=== PATIENT | female | born 1995 | race Caucasian/White ===

== ENCOUNTER 2023-10-24 09:30 | Inpatient (IN) | payer OTHER, SELFPAY ==
[2023-10-24 09:45] VITALS: BP 138/81; BMI 46.1
[2023-10-24 09:48] LABS: Hematocrit 34.5 % (37.0-47.0); Hemoglobin 12.5 g/dL (12.0-16.0); Mean Corp Hgb Conc. 36.2 g/dL (33.0-37.0); Mean Corpuscular Hgb 28.6 pg (27.0-31.0); Mean Corpuscular Volume 78.9 fL (81.0-99.0); Mean Platelet Volume 10.6 fL (7.4-10.4); Platelet Count 246 10^3/uL (130-400); Red Blood Cell Count 4.37 10^6/uL (4.20-5.40); Red Cell Dist. Width 13.2 % (11.5-14.5); White Blood Cell Count 10.1 10^3/uL (4.8-10.8)
[2023-10-24 10:08] LABS: Urine Albumin Trace (Neg - Trace); Urine Bilirubin Negative (Negative); Urine Character Clear (Clear); Urine Color Yellow; Urine Glucose Negative (Negative); Urine Ketone Negative (Negative); Urine Leukocyte 1+ (Negative); Urine Nitrite Negative (Negative); Urine Occult Blood Negative (Negative); Urine Urobilinogen Negative (Neg - 1+)
[2023-10-24 10:18] LABS: ALT (SGPT) 15 U/L (0-35); AST (SGOT) 23 U/L (14-36); Albumin 3.4 g/dl (3.5-5.0); Alkaline Phosphatase 131 U/L (38-126); Blood Urea Nitrogen 9 mg/dl (7-17); Calcium 9.1 mg/dl (8.4-10.2); Carbon Dioxide 17 mmol/L (22-30); Chloride 107 mmol/L (98-107); Estimated Creatinine Clearance > 125 ml/min; Glucose 105 mg/dl (70-99); Sodium 135 mmol/L (135-145); Total Bilirubin 0.7 mg/dl (0.2-1.3); eGFR > 60.00
[2023-10-24 10:18] LABS: Urine Squamous Cell >30 /LPF (Few)
[2023-10-24 10:19] LABS: Urine Bacteria Few (Negative); Urine Red Blood Cell 0-2 /HPF (0-2)
[2023-10-24 10:28] LABS: Protein/creatinine Ratio 0.1; Urine Protein 12 mg/dl
[2023-10-24] MEDS: CYTOTEC 50 MICROGRAM VAG (12:57)
[2023-10-24] MEDS: CYTOTEC 50 MICROGRAM PO ×3 (17:33→23:41)
[2023-10-25] MEDS: LR 1000 IV ×3 (04:08→08:47)
[2023-10-25] MEDS: FENTANYL/BUPIVACAINE 100 EPIDURAL (05:46)
[2023-10-25] MEDS: SUBLIMAZE 100 MCG EPIDURAL (05:55)
[2023-10-25] MEDS: CYTOTEC PO ×2 (08:48→11:17)
[2023-10-25] MEDS: PITOCIN 30 UNITS/NSS 500 ML IV ×2 (08:48→12:22)
[2023-10-25] MEDS: MOTRIN 600 MG PO ×2 (16:08→22:37)
[2023-10-25] MEDS: TYLENOL 650 MG PO (20:26)
[2023-10-26] MEDS: TYLENOL 650 MG PO ×2 (00:58→16:58)
[2023-10-26] MEDS: MOTRIN 600 MG PO ×4 (04:40→23:15)
[2023-10-26 05:09] LABS: Hematocrit 30.2 % (37.0-47.0); Hemoglobin 10.3 g/dL (12.0-16.0)
--- NOTE | 2023-10-26 09:43 | CM ---
CM reviewed pt with nursing
Plan for dc today
No CM or discharge needs noted
CM will be available for planning as needed
[2023-10-26] MEDS: PRENATAL PLUS 1 TABLET PO (10:23)
[2023-10-26] MEDS: SENOKOT-S 1 TABLET PO (10:23)
[2023-10-27] MEDS: MOTRIN 600 MG PO (07:54)
[2023-10-27] MEDS: TYLENOL 650 MG PO (07:54)
[2023-10-27] MEDS: PRENATAL PLUS 1 TABLET PO (07:55)
[2023-10-27] MEDS: SENOKOT-S 1 TABLET PO (07:55)
[2023-10-27] MEDS: ADACEL 0.5 ML IM (09:28)
[2023-10-27 13:41] LABS: Syphilis/T. pallidum Ab Reflex Negative (Negative)
== END 2023-10-27 14:07 | disposition home or self-care (01) | DRG 807 ==
LOC: LDRP 09:30
PROVIDERS: ADMITTING PHYSICIAN Obstetrics & Gynecology
PROC: 3E0P7VZ Introduction of Hormone into Female Reproductive, Via Natural or Artificial Opening (ICD-10-PCS; 2023-10-24)
PROC: 0KQM0ZZ Repair Perineum Muscle, Open Approach (ICD-10-PCS; 2023-10-25)
PROC: 3E033VJ Introduction of Other Hormone into Peripheral Vein, Percutaneous Approach (ICD-10-PCS; 2023-10-25)
PROC: 10E0XZZ Delivery of Products of Conception, External Approach (ICD-10-PCS; 2023-10-25)
DX: O13.4 Gestational [pregnancy-induced] hypertension without significant proteinuria, complicating childbirth (principal); Z37.0 Single live birth; O70.1 Second degree perineal laceration during delivery; O99.214 Obesity complicating childbirth; Z3A.39 39 weeks gestation of pregnancy
CPT/HCPCS: 36415; 80053; 81003; 81015; 82570; 84156; 85014; 85018; 85027; 86780; 86850; 86900; 86901; 90715